=== PATIENT | male | born 1960 | race Hispanic/Latino ===

== ENCOUNTER 2021-08-03 00:02 | Emergency (ER) | payer SELFPAY ==
[2021-08-03] MEDS ORDERED: EPINEPHrine 1 MG/ML VIAL ONE (00:46)
[2021-08-03] MEDS ORDERED: Dexamethasone 10 MG/ML VIAL ONE (00:46)
== END 2021-08-03 02:49 | disposition home or self-care (01) ==
LOC: ERS 00:02
DX: L29.9 Pruritus, unspecified (principal); R11.2 Nausea with vomiting, unspecified; T36.0X5A Adverse effect of penicillins, initial encounter
CPT/HCPCS: 96372; 99283; J0171; J1100